=== PATIENT | female | born 1990 | race Caucasian/White ===

== ENCOUNTER 2019-08-28 20:58 | Emergency (ER) | payer MEDICAID, OTHER ==
[~2019-08-28] VITALS: Ht 152.4 cm; Wt 54.5 kg
[2019-08-28] MEDS ORDERED: PERTUSS(ACELL),DIPH,TET VAC/PF 0.5 ML VIAL IM ONE (21:45)
[2019-08-28] MEDS ORDERED: IBUPROFEN 400 MG TABLET PO ONE (22:00)
[2019-08-28] MEDS ORDERED: ACETAMINOPHEN 325 MG TABLET PO ONE (22:00)
[2019-08-28 23:30] VITALS: BP 119/77
== END 2019-08-29 | disposition home or self-care (01) ==
LOC: EMS 20:58
DX: S93.492A Sprain of other ligament of left ankle, initial encounter (principal); S90.512A Abrasion, left ankle, initial encounter; W22.8XXA Striking against or struck by other objects, initial encounter; Y93.89 Activity, other specified; Y92.89 Other specified places as the place of occurrence of the external cause; Y99.8 Other external cause status
CPT/HCPCS: 29515